=== PATIENT | female | born 1995 | race Two or more races ===

== ENCOUNTER 2021-01-21 10:45 | Emergency (ER) | payer MEDICAID ==
[~2021-01-21] VITALS: Ht 167.6 cm; Wt 181.4 kg
[2021-01-21 11:32] VITALS: BP 131/88
[2021-01-21] MEDS ORDERED: IBUPROFEN 800 MG TAB PO ONE (12:15)
== END 2021-01-21 12:37 | disposition home or self-care (01) ==
LOC: ER 10:53
DX: S83.92XA Sprain of unspecified site of left knee, initial encounter (principal); E66.01 Morbid (severe) obesity due to excess calories; Z68.44 Body mass index [BMI] 60.0-69.9, adult; W18.39XA Other fall on same level, initial encounter; Y93.89 Activity, other specified; Y92.89 Other specified places as the place of occurrence of the external cause; Y99.8 Other external cause status
CPT/HCPCS: 73562

== ENCOUNTER → 2024-07-02 | Outpatient (CLI) | payer MEDICAID ==
[2024-07-02 11:23] LABS: Basophils # (auto) 0.1 10 ^3/uL (0-0.2); Basophils % (auto) 0.9 % (0.0-2.0); Eosinophils # (auto) 0.2 10 ^3/uL (0-0.8); Eosinophils % (auto) 2.7 % (0.0-7.0); Hematocrit 41.4 % (36.0-46.0); Lymphocytes # (auto) 2.3 10 ^3/uL (0.4-5.4); Lymphocytes % (auto) 26.5 % (10.0-50.0); Mean Corpuscular Hemoglobin 27.7 pg (28.0-32.0); Mean Corpuscular Hgb Conc. 33.7 g/dL (32.0-36.0); Mean Corpuscular Volume 82.1 fL (80.0-100.0); Monocytes # (auto) 0.5 10 ^3/uL (0-1.3); Monocytes % (auto) 5.3 % (0.0-12.0); Neutrophils # (auto) 5.7 10 ^3/uL (1.6-8.6); Neutrophils % (auto) 64.6 % (37.0-80.0); Nucleated Red Blood Cells % 0.2 %; Platelet Count (auto) 290 10^3/uL (140-450); Red Blood Cells 5.04 10^6/uL (4.0-5.20); Red Cell Distribution Width 13.9 % (11.8-14.3); White Blood Cell 8.9 10^3/uL (4.4-10.8)
[2024-07-02 11:33] LABS: Urine Bacteria FEW /hpf (None Seen); Urine Blood Negative /uL (Negative); Urine Clarity Clear (Clear); Urine Color Yellow (Yellow); Urine Mucus FEW (None Seen); Urine Protein, UAD TRACE (Negative); Urine Specific Gravity 1.031 (1.001-1.035); Urine Urobilinogen Normal (Negative); Urine WBC 7 /hpf (0 - 5); Urine pH 5.5 (5.0-9.0)
[2024-07-02 12:08] LABS: Alanine Aminotransferase 16 U/L (7-40); Albumin 4.2 g/dL (3.2-4.8); Alkaline Phosphatase 101 U/L (46-116); Anion Gap 5 (5-15); Aspartate Aminotransferase 15 U/L (13-40); BUN/Creatinine Ratio 19.2 (10.0-20.0); Blood Urea Nitrogen 14 mg/dL (9-23); Calcium 9.5 mg/dL (8.7-10.4); Carbon Dioxide 31 mmol/L (20-31); Chloride 105 mmol/L (98-107); Cholesterol 174 mg/dL (< 200); Glucose 89 mg/dL (74-106); HDL Cholesterol 40 mg/dL (40-59); LDL Cholesterol 108 mg/dL (< 100); Potassium 4.3 mmol/L (3.5-5.1); Sodium 141 mmol/L (136-145); Triglycerides 117 mg/dL (< 150)
[2024-07-02 12:09] LABS: Bilirubin, Total 0.4 mg/dL (0.2-1.0); Total Protein 7.4 g/dL (5.7-8.2)
== END | disposition home or self-care (01) ==
LOC: LAB 10:49
PROVIDERS: ATTEND Nurse Practitioner Family
DX: Z00.01 Encounter for general adult medical examination with abnormal findings (principal); R73.9 Hyperglycemia, unspecified; E55.9 Vitamin D deficiency, unspecified; E66.9 Obesity, unspecified; I10 Essential (primary) hypertension
CPT/HCPCS: 36415; 80053; 80061; 81001; 82043; 82306; 83036; 84443; 85025

== ENCOUNTER 2024-08-03 23:51 | Emergency (ER) | payer MEDICAID | END 2024-08-04 00:05 | disposition left against medical advice (07) | LOC: ER 08-04 | DX: T14.8XXA Other injury of unspecified body region, initial encounter (principal); Z53.21 Procedure and treatment not carried out due to patient leaving prior to being seen by health care provider; X58.XXXA Exposure to other specified factors, initial encounter; Y93.89 Activity, other specified; Y92.89 Other specified places as the place of occurrence of the external cause; Y99.8 Other external cause status ==

== ENCOUNTER 2025-03-16 00:14 | Inpatient (IN) | payer MEDICAID ==
[2025-03-16] VITALS (7 sets, daily range): BP systolic 110–126; BP diastolic 59–69; PULSE 55–67; RESP 12–18; TEMP 97.5–97.6; O2SAT 96–97
[~2025-03-16] VITALS: Ht 167.6 cm; Wt 165.0 kg
[2025-03-16 00:51] LABS: Hematocrit 42.8 % (36.0-46.0); Hemoglobin 14.4 g/dL (12.2-16.2); Mean Corpuscular Hemoglobin 27.8 pg (28.0-32.0); Mean Corpuscular Volume 82.6 fL (80.0-100.0); Nucleated Red Blood Cells % 0.0 %
--- NOTE | 2025-03-16 00:55 | ED.PDOC ---
History of Present Illness HPI Comments 29-year-old female status post gastric bypass surgery 6 days ago now complains of pain in the middle of her abdomen where the gastric bypass incisions are. Associated with malaise and some dizziness Chief Complaint: Abdominal Pain Time Seen by MD: 00:18 Primary Care Provider: DE PRITCHARD Allergies: Coded Allergies: NO KNOWN ALLERGIES (Unverified , 01/21/21) Information Source: Patient Mode of Arrival: SELF Severity: Moderate, Severe Timing: Hours, Days Duration: Since onset Past Medical History PAST MEDICAL HISTORY: Denies Surgical History: Denies all surgeries CAR CHASER History: Denies all CAR CHASER Hx Family History Family History: Reviewed,noncontributory to illness Social History Smoker: Non-Smoker Lives In: Home Constitutional: reports: malaise Gastrointestinal: reports: abdominal pain, nausea All Other Systems: Reviewed and Negative Physical Exam General Appearance: Moderate Distress HEENT: Normal ENT Inspection, Pharynx Normal, TMs Normal Neck: Full Range of Motion, Non-Tender, Normal, Normal Inspection Respiratory: Chest Non-Tender, Lungs Clear, No Accessory Muscle Use, No Respiratory Distress, Normal Breath Sounds Cardiovascular: No Edema, No JVD, No Murmur, No Gallop, Normal Peripheral Pulses, Regular Rate/Rhythm Breast Exam: Deferred Gastrointestinal: Tenderness, Other (Obese. Healing surgical incisions noted in the mid abdomen that are clean dry and intact) Genitalia: Deferred Pelvic: Deferred Rectal: Deferred Extremities: No calf tenderness, Normal capillary refill, Normal inspection, Normal range of motion, Non-tender, No pedal edema Musculoskeletal : Apperance: Normal Neurologic: Alert, automobile designer II-XII nml as Tested, No Motor Deficits, Normal Affect, Normal Mood, No Sensory Deficits Cerebellar Function: Normal Reflexes: Normal Skin: Dry, Normal Color, Warm Lymphatic: No Adenopathy Was a procedure done? Was a procedure done?: No Differential Dx Considerations may include: Differential diagnosis includes but is not limited to: gastritis, peptic ulcers, pancreatitis, cholecystitis, bowel obstruction, cholangitis and others X-Ray, Labs, Meds, VS Vital Signs Date Time Temp Pulse Resp B/P (MAP) Pulse Ox O2 Delivery O2 Flow Rate FiO2 03/16/25 04:45 64 18 134/76 03/16/25 04:40 98.1 64 19 137/76 (96) 100 98.1 03/16/25 04:40 64 19 100 Room Air 03/16/25 00:35 97.6 61 16 140/77 (98) 97 97.6 Lab Test 03/16/25 01:00 03/16/25 00:26 Range/Units Urine Color Yellow Yellow Urine Clarity Clear Clear Urine pH 6.0 5.0-9.0 Urine Specific [place] 1.033 1.001-1.035 Urine Protein Trace H Negative Urine Ketones 4+ H Negative Urine Blood Negative Negative /uL Urine Nitrite Negative Negative Urine Bilirubin 1+ H Negative Urine Urobilinogen 3 H Negative mg/dL Urine Leukocyte Esterase 2+ Negative /uL Urine RBC 4 0 - 4 /hpf Urine Microscopic WBC 22 H 0-5 /HPF Urine Squamous Epithelial Cells Few <5 /hpf Urine Bacteria Few H None Seen /hpf Urine Mucus Few None Seen Urine Glucose Normal Normal mg/dL Urine Test Negative Negative White Blood Count 13.5 H 4.4-10.8 10^3/uL Red Blood Count 5.17 4.0-5.20 10^6/uL Hemoglobin 14.4 12.2-16.2 g/dL Hematocrit 42.8 36.0-46.0 % Mean Corpuscular Volume 82.6 80.0-100.0 fL Mean Corpuscular Hemoglobin 27.8 L 28.0-32.0 pg Mean Corpuscular Hemoglobin Concent 33.7 32.0-36.0 g/dL Red Cell Distribution Width 14.0 11.8-14.3 % Platelet Count 318 140-450 10^3/uL Mean Platelet Volume 8.9 6.9-10.8 fL Neutrophils (%) (Auto) 66.9 37.0-80.0 % Lymphocytes (%) (Auto) 24.4 10.0-50.0 % Monocytes (%) (Auto) 6.0 0.0-12.0 % Eosinophils (%) (Auto) 2.1 0.0-7.0 % Basophils (%) (Auto) 0.6 0.0-2.0 % Neutrophils # (Auto) 9.0 H 1.6-8.6 10 ^3/uL Lymphocytes # (Auto) 3.3 0.4-5.4 10 ^3/uL Monocytes # (Auto) 0.8 0-1.3 10 ^3/uL Eosinophils # (Auto) 0.3 0-0.8 10 ^3/uL Basophils # (Auto) 0.1 0-0.2 10 ^3/uL Nucleated Red Blood Cells 0.0 % Sodium Level 138 136-145 mmol/L Potassium Level 3.3 L 3.5-5.1 mmol/L Chloride Level 102 98-107 mmol/L Carbon Dioxide Level 22 20-31 mmol/L Anion Gap 14 5-15 Blood Urea Nitrogen 12 9-23 mg/dL Creatinine 0.71 0.550-1.02 mg/dL Glomerular Filtration Rate Calc 119 >90 mL/min BUN/Creatinine Ratio 16.9 10.0-20.0 Serum Glucose 77 74-106 mg/dL Calcium Level 9.3 8.7-10.4 mg/dL Total Bilirubin 0.5 0.2-1.0 mg/dL Aspartate Amino Transferase (AST) 48 H 13-40 U/L Alanine Aminotransferase (ALT) 59 H 7-40 U/L Alkaline Phosphatase 81 46-116 U/L Total Protein 7.4 5.7-8.2 g/dL Albumin 4.5 3.2-4.8 g/dL Lipase 32 12-53 U/L Beta HCG, Quantitative 0.5 L 1.5-4.2 mIU/mL Current Medications Medications (Trade) Dose Ordered Sig/Cyndi Route Start Time Stop Time Status Last Admin Sodium Chloride 1,000 ml @ 1,000 mls/hr Q1H ONCE IVB 03/16/25 01:00 03/16/25 01:59 DC 03/16/25 04:34 Hydromorphone HCl (Dilaudid Injection) 1 mg ONCE ONCE IV 03/16/25 04:45 03/16/25 04:46 DC 03/16/25 04:45 Ondansetron HCl (Zofran) 4 mg ONCE ONCE IV 03/16/25 04:45 03/16/25 04:46 DC 03/16/25 04:44 Piperacillin Sod/ Tazobactam Sod 100 ml @ 100 mls/hr ONCE ONCE IV 03/16/25 04:45 03/16/25 05:44 03/16/25 04:46 Time of 1ST Reevaluation: 04:00 Reevaluation 1ST: Unchanged Patient Education/Counseling: Diagnosis, Treatment Family Education/Counseling: No Family Present SEPSIS Sepsis Screen Date sepsis recognized/suspect: Mar 16, 2025 Time Sepsis recognized/suspect: 0026 Recent Procedure: Yes On Antibiotic Therapy: No Respiratory Rate >20: No Heart Rate >90: No Temp<36 C (96.8 F) or >38.3 C: No SBP <90 or MAP <65 mmHG: No New Acute Mental Status Change: No Is the patient on CPAP, BIPAP,: No Physician Orders Ct Ab Pel With Iv Con Only (03/16/25 00:48) Gallbladder (03/16/25 04:39) Piperacillin-Tazob 3.375gm (Zosyn 3.375g (03/16/25 04:45) Vital Signs Date Time Temp Pulse Resp B/P (MAP) Pulse Ox O2 Delivery O2 Flow Rate FiO2 03/16/25 04:45 64 18 134/76 03/16/25 04:40 98.1 64 19 137/76 (96) 100 98.1 03/16/25 04:40 64 19 100 Room Air 03/16/25 00:35 97.6 61 16 140/77 (98) 97 97.6 Laboratory Tests Test 03/16/25 00:26 White Blood Count 13.5 10^3/uL (4.4-10.8) H Medications Medications Dose Ordered Sig/Cyndi Route Start Time Stop Time Status Last Admin Dose Admin Hydromorphone HCl 1 mg ONCE ONCE IV 03/16/25 04:45 03/16/25 04:46 DC 03/16/25 04:45 Ondansetron HCl 4 mg ONCE ONCE IV 03/16/25 04:45 03/16/25 04:46 DC 03/16/25 04:44 Piperacillin Sod/ Tazobactam Sod 100 ml @ 100 mls/hr ONCE ONCE IV 03/16/25 04:45 03/16/25 05:44 03/16/25 04:46 Sodium Chloride 1,000 ml @ 1,000 mls/hr Q1H ONCE IVB 03/16/25 01:00 03/16/25 01:59 DC 03/16/25 04:34 Departure 1 Departure Time of Disposition: 04:53 Impression: Primary Impression: Cholecystitis Additional Impression: Urinary tract infection Disposition: 09 ADMITTED INPATIENT Condition: Guarded Discharged With: Self Comments Upper Abdominal Pain Post Gastric Bypass Chief Complaint: Upper abdominal pain for 4 hours History of Present Illness: Patient is a 29-year-old female who presents to the ED with complaints of upper abdominal pain for the last 4 hours after eating. The patient is 6 days post gastric bypass surgery. She reports associated symptoms of malaise, dizziness, and nausea. The pain is primarily located in the epigastric region. She denies fever, vomiting, diarrhea, or changes in bowel habits. The patient has been f ollowing post-surgical dietary recommendations until this episode. Review of Systems: Constitutional: Positive for malaise and dizziness. Gastrointestinal: Positive for epigastric pain and nausea. Negative for vomiting, diarrhea, or constipation. Genitourinary: No dysuria, frequency, or urgency reported despite laboratory evidence of UTI. All other systems reviewed and negative. Medications: Post-surgical medications (not specified in early childhood education specialist) IV fluids (administered in ED) IV antibiotics (administered in ED) Not documented in early childhood education specialist Physical Exam: General: Not documented in early childhood education specialist Abdomen: Tenderness in the epigastric area. No rebound or guarding documented. Lab Results: CBC: - WBC: 13.5 (elevated) - Remainder of CBC unremarkable Chemistry: - Potassium: 3.3 (low) - AST: 48 (elevated) - ALT: 59 (elevated) - Remainder of LFTs unremarkable Urinalysis: - Leukocytes: 2+ - WBCs: 22 Imaging and Other Relevant Results: CT Abdomen/Pelvis: - Moderate gallbladder wall thickening - Pericholecystic edema - Splenomegaly - Trace physiological free fluid Medical Decision Making: Summary Statement: 29-year-old female, 6 days post gastric bypass surgery, presenting with acute upper abdominal pain, elevated inflammatory markers, and CT findings consistent with acute cholecystitis. Concurrent UTI identified on urinalysis. Problem List: 1. Acute cholecystitis 2. Urinary tract infection 3. Recent gastric bypass surgery 4. Hypokalemia Differential Diagnosis: Acute cholecystitis, anastomotic leak, post-surgical infection, pancreatitis, gastritis, small bowel obstruction, internal hernia, urinary tract infection. ED Course: Patient received IV fluids and IV antibiotics. Pain persisted despite interventions. Decision made to admit for management of acute cholecystitis and UTI. Assessment and Plan: 1. Acute Cholecystitis: - Diagnosis supported by clinical presentation, elevated WBC, and CT findings of gallbladder wall thickening with pericholecystic edema - Continue IV antibiotics with coverage for biliary pathogens - Surgical consultation for possible cholecystectomy - NPO status - Pain management with IV analgesics 2. Urinary Tract Infection: - Diagnosis based on urinalysis showing 2+ leukocytes and 22 WBCs - Continue IV antibiotics with appropriate urinary tract coverage - Encourage fluid intake as tolerated - Urine culture results pending 3. Post Gastric Bypass Status: - Surgical consultation to evaluate for any potential post-surgical complications - Monitor for signs of anastomotic leak or other surgical complications 4. Hypokalemia (K+ 3.3): - IV potassium supplementation - Serial electrolyte monitoring 5. Disposition: Admit to inpatient service for continued management and monitoring Additional Notes: Patient admitted for acute cholecystitis and UTI following recent gastric bypass surgery Billing Information: ICD-10: K81.0 - Acute cholecystitis ICD-10: N39.0 - Urinary tract infection, site not specified ICD-10: Z98.84 - Bariatric surgery status Critical Care Note Critical Care Time?: No Stability Stability form required: No Heart Score Heart Score: Heart Score Response (Comments) Value History N/A 0 EKG N/A 0 Age N/A 0 Risk Factors N/A 0 Troponin N/A 0 Total 0 KANDIS GUERRERO MD Mar 16, 2025 00:54
[2025-03-16 01:05] LABS: Albumin 4.5 g/dL (3.2-4.8); Alkaline Phosphatase 81 U/L (46-116); Anion Gap 14 (5-15); BUN/Creatinine Ratio 16.9 (10.0-20.0); Bilirubin, Total 0.5 mg/dL (0.2-1.0); Blood Urea Nitrogen 12 mg/dL (9-23); Calcium 9.3 mg/dL (8.7-10.4); Carbon Dioxide 22 mmol/L (20-31); Chloride 102 mmol/L (98-107); Glucose 77 mg/dL (74-106); Lipase 32 U/L (12-53); Sodium 138 mmol/L (136-145); Total Protein 7.4 g/dL (5.7-8.2)
[2025-03-16 01:09] LABS: Alanine Aminotransferase 59 U/L (7-40); Potassium 3.3 mmol/L (3.5-5.1)
[2025-03-16] MEDS: IOHEXOL 300 MG/ML 100ML BOTTLE IJ ONE (01:19)
[2025-03-16 01:55] LABS: Urine Protein, UAD TRACE (Negative)
--- NOTE | 2025-03-16 04:14 | DVH ---
Exam: CT CT AB PEL WITH IV CON ONLY History: abd pain s/p gastric bypass surg 6 days ago COMPARISON: None Technique: Multidetector spiral CT of the abdomen and pelvis was performed from lung bases to pubic s ymphysis. Intravenous contrast was administered during this examination. Portal venous imaging was o btained. Axial, coronal and sagittal multiplanar reformats were performed by the technologist on a [employer] workstation. Radiation Dose : 1. Abdomen/Pelvis: CTDIvol 27.88 mGy, DLP 1393.41 mGy*cm. CONTRAST: Type of contrast: Omnipaque 300 Contrast injected: 100 ml Findings: Lung Bases: No acute or significant lung base finding. Normal heart size. No pleural or pericardial effusion. Liver: The liver is normal in size. No focal lesions. Normal hepatic vascular enhancement. Gallbladder and Biliary Tree: Moderate gallbladder wall thickening and pericholecystic edema. Spleen: Enlarged, measuring 14.8 cm in craniocaudal dimension. Pancreas: The pancreas is normal in appearance without focal lesions or abnormal enhancement. Adrenal Glands: Unremarkable Kidneys: No nephrolithiasis or hydronephrosis. Bladder: Unremarkable Bowel: The stomach is grossly normal in appearance with postsurgical change. Small bowel and colon ar e normal in caliber and distribution. The appendix is normal. Ascites: Trace likely physiologic pelvic cul-de-sac free fluid. Lymphadenopathy: No mesenteric, retroperitoneal or periportal lymphadenopathy. Abdominal Wall and Mesentery: Unremarkable. Vasculature: The visualized abdominal aorta is normal in size and caliber. Abdominal and pelvic vess els demonstrate normal enhancement. Pelvic Organs: Structure near water attenuation consistent with an ovarian cyst. Musculoskeletal: No aggressive focal bony lesions, acute fractures or dislocation. IMPRESSION: 1. Moderate gallbladder wall thickening and pericholecystic edema. 2. Splenomegaly. 3. Trace likely physiologic pelvic cul-de-sac free fluid. Radiation optimization: All CT scans at this facility use at least one of these dose optimization hetal hniques: automated exposure control mA and/or kV adjustment per patient size (includes targeted exam s where dose is matched to clinical indication) or iterative reconstruction.
[2025-03-16] MEDS: SODIUM CHLORIDE 0.9% 1,000 ML IVB ONE (04:34)
[2025-03-16] MEDS: ONDANSETRON HCL 4 MG/2 ML VIAL IV ONE (04:44)
[2025-03-16] MEDS: HYDROmorphone HCL 2 MG/ML VL/or syr IV ONE (04:45)
[2025-03-16] MEDS: PIPERACILLIN-TAZOB 3.375GM 100 ML IV ONE (04:46)
[2025-03-16] MEDS: METOCLOPRAMIDE HCL 5MG/ml INJ 2ml VIAL IV ONE (06:07)
[2025-03-16] MEDS: KETOROLAC TROMETH 30 MG/ML 1ML VIAL IV ONE (06:07)
[2025-03-16] MEDS: METOCLOPRAMIDE HCL 5MG/ml INJ 2ml VIAL ONE (06:07)
--- NOTE | 2025-03-16 06:58 | DVH ---
INDICATION: RUQ pain TECHNIQUE: Multiple real-time sonographic images were obtained of the right upper quadrant. COMPARISON: None FINDINGS: The liver demonstrates normal homogeneous echotexture without focal mass lesions. The liver measures 14.9 cm. Normal hepatopetal portal flow identified. No evidence of pleural effusion or abd ominal ascites. There is no intrahepatic or extrahepatic ductal dilatation. The common duct measures 0.5 cm. The gallbladder is without evidence of stone or sludge. The gallbladder wall is thickened, measuring 1.5 cm. Pericholecystic fluid. Negative sonographic quintana's sign. The right kidney measures 9.1 cm. The right kidney is normal in contour, size, and shape. The echogen icity is normal. There is no hydronephrosis. The pancreas is not well visualized due to overlying bowel gas. IMPRESSION: 1. Gallbladder wall thickening with pericholecystic fluid. These findings may be consistent with acut e cholecystitis in the appropriate clinical setting.
[2025-03-16] MEDS ORDERED: HYDROcodone-ACET 5/325MG TAB PO PRN (07:45)
[2025-03-16] MEDS ORDERED: DOCUSATE SOD 100 MG CAP PO PRN (07:45)
[2025-03-16] MEDS ORDERED: ACETAMINOPHEN 325 MG TAB PO PRN (07:45)
[2025-03-16] MEDS ORDERED: METOCLOPRAMIDE HCL 5MG/ml INJ 2ml VIAL IV PRN (07:45)
[2025-03-16] MEDS ORDERED: ONDANSETRON HCL 4 MG/2 ML VIAL IV PRN (07:45)
[2025-03-16] MEDS ORDERED: MORPHINE SULFATE INJ 2 MG/ml SYRG IV PRN (07:45)
--- NOTE | 2025-03-16 07:47 | DVHHP2 ---
History of Present Illness Reason for Visit: Abdominal pain History of Present Illness Eda Liang is a 29-year-old female with past medical history of morbid obesity, asthma, and ADHD, who came to the hospital for abdominal pain. Patient had gastric bypass surgery on 03/10/2025. She states last night she cheated on her approved diet and had caned chicken. Her pain began shortly after eating, and was lasting more then 4 hours with associated nausea. She states it felt like the food was not digesting and just sitting in her stomach. She was not sure if she just over ate, or if she had tore her stitches or damaged the surgery, prompting her to come to the hospital to be evaluated. Pulmonary: Asthma Psych: Other (ADHD) Past Surgical History: Other (Gastric bypass 03/10/2025) Smoke: No ALCOHOL: rare Drugs: None Lives: with Family Domestic Violence: Neg Review of Systems Constitutional: No: Fever, Chills, Sweats, Weakness, Malaise, Other Eyes: No: Pain, Vision change, Conjunctivae inflammation, Eyelid inflammation, Other, Redness ENT: No: Ear pain, Ear discharge, Nose pain, Nose discharge, Nose congestion, Mouth pain, Mouth swelling, Throat pain, Throat swelling, Other Respiratory: No: Cough, Dry, Shortness of breath, SOB with excertion, Wheezing, Hemoptysis, Pleuritic Pain, Sputum, Wheezing, Other Cardiovascular: No: Chest Pain, Palpitations, Orthopnea, Paroxysmal Noc. Dyspnea, Edema, Lt Headedness, Other Gastrointestinal: Nausea, Abdominal Pain; No: Vomiting, Diarrhea, Constipation, Melena, Hematochezia, Other Genitourinary: No Dysuria, No Frequency, No Incontinence, No Hematuria, No Retention, No Other Musculoskeletal: No: other, neck pain, shoulder pain, arm pain, back pain, hand pain, leg pain, foot pain Skin: No: Rash, Lesions, Jaundice, Bruising, Other Neurological: No: Weakness, Numbness, Incoordination, Change in speech, Confusion, Seizures, Other Allergies: Coded Allergies: NO KNOWN ALLERGIES (Unverified , 01/21/21) Medications Current Medications Medications Dose Ordered Sig/Cyndi Route Start Time Stop Time Status Last Admin Dose Admin Sodium Chloride 1,000 ml @ 100 mls/hr Q10H IV 03/16/25 07:45 UNV Acetaminophen/ Hydrocodone Bitart 1 tab Q4HP PRN PO 03/16/25 07:45 UNV Ondansetron HCl 4 mg Q4HP PRN IV 03/16/25 07:45 UNV Docusate Sodium 100 mg BIDPRN PRN PO 03/16/25 07:45 UNV Acetaminophen 650 mg Q6HP PRN PO 03/16/25 07:45 UNV Morphine Sulfate 2 mg Q4HPRN PRN IV 03/16/25 07:45 UNV Metoclopramide HCl 10 mg Q8HPRN PRN IV 03/16/25 07:45 UNV Metronidazole 100 ml @ 100 mls/hr Q8HR IV 03/16/25 14:00 UNV Exam Vital Signs Vital Signs Date Time Temp Pulse Resp B/P (MAP) Pulse Ox O2 Delivery O2 Flow Rate FiO2 03/16/25 06:30 84 16 138/68 (91) 100 03/16/25 04:56 Room Air* 0 21 03/16/25 04:40 98.1 98.1 General Appearance: Alert, Oriented X3, Cooperative, mild distress HEENT: Atraumatic, PERRLA Respiratory: Clear to auscultation, Normal air movement Cardiovascular: Regular rate, Normal S1, Normal S2, No murmurs Abdominal: Normal bowel sounds, Soft, Other (Tender to the touch, multiple healing incision sites) Extremities: No clubbing, No cyanosis, No edema, Normal pulses, No tenderness/swelling Skin: No rashes, No breakdown, No significant lesion Neuro: Normal gait, Normal speech, Strength at 5/5 X4 ext Psych/Mental Status: Mental status NL, Mood NL Labs/Xrays Labs Test 03/16/25 01:00 03/16/25 00:26 Range/Units Urine Color Yellow Yellow Urine Clarity Clear Clear Urine pH 6.0 5.0-9.0 Urine Specific [place] 1.033 1.001-1.035 Urine Protein Trace H Negative Urine Ketones 4+ H Negative Urine Blood Negative Negative /uL Urine Nitrite Negative Negative Urine Bilirubin 1+ H Negative Urine Urobilinogen 3 H Negative mg/dL Urine Leukocyte Esterase 2+ Negative /uL Urine RBC 4 0 - 4 /hpf Urine Microscopic WBC 22 H 0-5 /HPF Urine Squamous Epithelial Cells Few <5 /hpf Urine Bacteria Few H None Seen /hpf Urine Mucus Few None Seen Urine Glucose Normal Normal mg/dL Urine Test Negative Negative White Blood Count 13.5 H 4.4-10.8 10^3/uL Red Blood Count 5.17 4.0-5.20 10^6/uL Hemoglobin 14.4 12.2-16.2 g/dL Hematocrit 42.8 36.0-46.0 % Mean Corpuscular Volume 82.6 80.0-100.0 fL Mean Corpuscular Hemoglobin 27.8 L 28.0-32.0 pg Mean Corpuscular Hemoglobin Concent 33.7 32.0-36.0 g/dL Red Cell Distribution Width 14.0 11.8-14.3 % Platelet Count 318 140-450 10^3/uL Mean Platelet Volume 8.9 6.9-10.8 fL Neutrophils (%) (Auto) 66.9 37.0-80.0 % Lymphocytes (%) (Auto) 24.4 10.0-50.0 % Monocytes (%) (Auto) 6.0 0.0-12.0 % Eosinophils (%) (Auto) 2.1 0.0-7.0 % Basophils (%) (Auto) 0.6 0.0-2.0 % Neutrophils # (Auto) 9.0 H 1.6-8.6 10 ^3/uL Lymphocytes # (Auto) 3.3 0.4-5.4 10 ^3/uL Monocytes # (Auto) 0.8 0-1.3 10 ^3/uL Eosinophils # (Auto) 0.3 0-0.8 10 ^3/uL Basophils # (Auto) 0.1 0-0.2 10 ^3/uL Nucleated Red Blood Cells 0.0 % Sodium Level 138 136-145 mmol/L Potassium Level 3.3 L 3.5-5.1 mmol/L Chloride Level 102 98-107 mmol/L Carbon Dioxide Level 22 20-31 mmol/L Anion Gap 14 5-15 Blood Urea Nitrogen 12 9-23 mg/dL Creatinine 0.71 0.550-1.02 mg/dL Glomerular Filtration Rate Calc 119 >90 mL/min BUN/Creatinine Ratio 16.9 10.0-20.0 Serum Glucose 77 74-106 mg/dL Calcium Level 9.3 8.7-10.4 mg/dL Total Bilirubin 0.5 0.2-1.0 mg/dL Aspartate Amino Transferase (AST) 48 H 13-40 U/L Alanine Aminotransferase (ALT) 59 H 7-40 U/L Alkaline Phosphatase 81 46-116 U/L Total Protein 7.4 5.7-8.2 g/dL Albumin 4.5 3.2-4.8 g/dL Lipase 32 12-53 U/L Beta HCG, Quantitative 0.5 L 1.5-4.2 mIU/mL Exam: CT CT AB PEL WITH IV CON ONLY Findings: Lung Bases: No acute or significant lung base finding. Normal heart size. No pleural or pericardial effusion. Liver: The liver is normal in size. No focal lesions. Normal hepatic vascular enhancement. Gallbladder and Biliary Tree: Moderate gallbladder wall thickening and pericholecystic edema. Spleen: Enlarged, measuring 14.8 cm in craniocaudal dimension. Pancreas: The pancreas is normal in appearance without focal lesions or abnormal enhancement. Adrenal Glands: Unremarkable Kidneys: No nephrolithiasis or hydronephrosis. Bladder: Unremarkable Bowel: The stomach is grossly normal in appearance with postsurgical change. Small bowel and colon are normal in caliber and distribution. The appendix is normal. Ascites: Trace likely physiologic pelvic cul-de-sac free fluid. Lymphadenopathy: No mesenteric, retroperitoneal or periportal lymphadenopathy. Abdominal Wall and Mesentery: Unremarkable. Vasculature: The visualized abdominal aorta is normal in size and caliber. Abdominal and pelvic vessels demonstrate normal enhancement. Pelvic Organs: Structure near water attenuation consistent with an ovarian cyst. Musculoskeletal: No aggressive focal bony lesions, acute fractures or dislocation. IMPRESSION: 1. Moderate gallbladder wall thickening and pericholecystic edema. 2. Splenomegaly. 3. Trace likely physiologic pelvic cul-de-sac free fluid. EXAM: GALL BLADDER ULTRASOUND: FINDINGS: The liver demonstrates normal homogeneous echotexture without focal mass lesions. The liver measures 14.9 cm. Normal hepatopetal portal flow iden tified. No evidence of pleural effusion or abdominal ascites. There is no intrahepatic or extrahepatic ductal dilatation. The common duct measures 0.5 cm. The gallbladder is without evidence of stone or sludge. The gallbladder wall is thickened, measuring 1.5 cm. Pericholecystic fluid. Negative sonographic quintana's sign. The right kidney measures 9.1 cm. The right kidney is normal in contour, size, and shape. The echogenicity is normal. There is no hydronephrosis. The pancreas is not well visualized due to overlying bowel gas. IMPRESSION: 1. Gallbladder wall thickening with pericholecystic fluid. These findings may be consistent with acute cholecystitis in the appropriate clinical setting. SEPSIS Sepsis Screen Date sepsis recognized/suspect: Mar 16, 2025 Time Sepsis recognized/suspect: 439 Recent Procedure: Yes On Antibiotic Therapy: No Respiratory Rate >20: No Heart Rate >90: No Temp<36 C (96.8 F) or >38.3 C: No SBP <90 or MAP <65 mmHG: No New Acute Mental Status Change: No Is the patient on CPAP, BIPAP,: No Physician Orders Ct Ab Pel With Iv Con Only (03/16/25 00:48) Gallbladder (03/16/25 04:39) Admit (03/16/25 07:34) Code Status (03/16/25 07:34) Sodium Chloride 0.9% (03/16/25 07:45) Hydrocodone-Acet 5/325mg Tab ([place] 5/32 (03/16/25 07:45) Ondansetron Hcl (Zofran) (03/16/25 07:45) Docusate Sodium Capsule (Colace Capsule) (03/16/25 07:45) Complete Blood Count (03/17/25 04:00) Comprehensive Metabolic Panel (03/17/25 04:00) Npo (Nothing By Mouth) Diet (03/16/25 Breakfast) Condition: Serious (03/16/25 07:34) Acetaminophen Tablet (Tylenol Tablet) (03/16/25 07:45) Morphine Sulfate Injection (03/16/25 07:45) * Surgical Consult (03/16/25 ) Metoclopramide Injection (Reglan Injecti (03/16/25 07:45) Metronidazole 500mg/100ml (Flagyl 500mg/ (03/16/25 14:00) PTPTT (03/16/25 07:34) Chest Xray 1 View (03/16/25 07:34) Vital Signs Date Time Temp Pulse Resp B/P (MAP) Pulse Ox O2 Delivery O2 Flow Rate FiO2 03/16/25 06:30 84 16 138/68 (91) 100 03/16/25 05:26 55 17 134/65 03/16/25 04:56 64 18 Room Air* 0 21 03/16/25 04:45 64 18 134/76 03/16/25 04:40 98.1 64 19 137/76 (96) 100 98.1 03/16/25 04:40 64 19 100 Room Air 03/16/25 00:35 97.6 61 16 140/77 (98) 97 97.6 Laboratory Tests Test 03/16/25 00:26 White Blood Count 13.5 10^3/uL (4.4-10.8) H Medications Medications Dose Ordered Sig/Cyndi Route Start Time Stop Time Status Last Admin Dose Admin Hydromorphone HCl 1 mg ONCE ONCE IV 03/16/25 04:45 03/16/25 04:46 DC 03/16/25 04:45 1 MG Ketorolac Tromethamine 15 mg ONCE ONCE IV 03/16/25 05:45 03/16/25 05:46 DC 03/16/25 06:07 15 MG Metoclopramide HCl 10 mg ONCE ONCE IV 03/16/25 05:45 03/16/25 05:46 DC 03/16/25 06:07 10 MG Ondansetron HCl 4 mg ONCE ONCE IV 03/16/25 04:45 03/16/25 04:46 DC 03/16/25 04:44 4 MG Piperacillin Sod/ Tazobactam Sod 100 ml @ 100 mls/hr ONCE ONCE IV 03/16/25 04:45 03/16/25 05:44 DC 03/16/25 04:46 100 MLS/HR Sodium Chloride 1,000 ml @ 1,000 mls/hr Q1H ONCE IVB 03/16/25 01:00 03/16/25 01:59 DC 03/16/25 04:34 1,000 MLS/HR Assessment/Plan Assessment/Plan Assessment: Acute cholecystitis, UTI, Hypokalemia, Morbid obesity, Plan: Admit to Med-Surg, Surgical consult, NPO, IV hydration, PT/PTT, Chest X-ray, Manage/Monitor electrolytes closely, IV Protonix daily, Home medications reconciled, Plan discussed with: Patient My Orders Orders - SAQIB GUILLEN [employer] Procedure Category Date Status Time Admit ADMIT 03/16/25 Transmitted 07:34 Code Status CODE 03/16/25 Transmitted 07:34 Sodium Chloride 0.9% PHA 03/16/25 Logged 07:45 Hydrocodone-Acet PHA 03/16/25 Logged 5/325mg Tab ([place] 07:45 Ondansetron Hcl PHA 03/16/25 Logged (Zofran) 07:45 Docusate Sodium PHA 03/16/25 Logged Capsule (Colace 07:45 Complete Blood Count LAB 03/17/25 Verified 04:00 Comprehensive LAB 03/17/25 Verified Metabolic Panel 04:00 Npo (Nothing By DIET 03/16/25 Transmitted Mouth) Diet Breakfast Condition: Serious [place] 03/16/25 In Process 07:34 Acetaminophen Tablet PHA 03/16/25 Logged (Tylenol Tablet) 07:45 Morphine Sulfate PHA 03/16/25 Logged Injection 07:45 * Surgical Consult CONS 03/16/25 Transmitted Metoclopramide PHA 03/16/25 Logged Injection (Reglan 07:45 Metronidazole PHA 03/16/25 Logged 500mg/100ml (Flagyl 14:00 PTPTT LAB 03/16/25 Logged 07:34 Chest Xray 1 View XY 03/16/25 Logged 07:34 Date of Service: Mar 16, 2025 Billing Provider: SAQIB GUILLEN Common Visit Codes: [id number] INP/OBS CARE (MOD) SAQIB GUILLEN Mar 16, 2025 07:47
--- NOTE | 2025-03-16 08:04 | DVH ---
CHEST RADIOGRAPH Indication: Pain Technique: Single frontal view of the chest was obtained COMPARISON: None FINDINGS: Lines and Tubes: None Lungs: Clear Pleura: No effusion. No pneumothorax. Cardiomediastinal contours: Unremarkable Bones: Unremarkable IMPRESSION: No acute disease.
[2025-03-16] MEDS ORDERED: OMEP-448 PO (08:07)
[2025-03-16] MEDS ORDERED: METH27TA PO (08:07)
[2025-03-16 08:55] LABS: INR 1.19 (0.9-1.15); Partial Thromboplastin Time 28.1 SEC (24.5-34.5); Prothrombin Time 12.4 sec (9.3-11.8)
[2025-03-16] MEDS: SODIUM CHLORIDE 0.9% 1,000 ML IV SCH (09:21)
[2025-03-16] MEDS: cefTRIAXone 1GM/50ML D5W 50 ML IV SCH (09:21)
[2025-03-16] MEDS: METHYLPHENIDATE PO SCH (09:52)
[2025-03-16] MEDS: PANTOPRAZOLE 40 MG/10 ML VIAL INJ IV SCH (10:25)
[2025-03-16] MEDS: POTASSIUM CHLORIDE 20 MEQ, LIDOCAINE 1% (LOCAL ANESTH.) 2 ML in SODIUM CHL 0.9% 100 ML IV ONE (10:26)
--- NOTE | 2025-03-16 11:31 | DVHINCON2 ---
Date of service: Mar 16, 2025 History of Present Illness 21-year-old morbidly obese female status post laparoscopic gastric Alon-en-Y bypass at a different facility six days ago who cheating on her diet and ate c hicken yesterday. Immediately afterwards she began experiencing abdominal pain without nausea or vomiting. Past Medical History Morbid obesity Past Surgical History Recent surgery as mentioned Family History: Deafness G8 MOTHER G8 FATHER FHx: breast cancer G8 MOTHER Family History Noncontributory Social History No alcohol, tobacco, IV drug use Allergies: Coded Allergies: NO KNOWN ALLERGIES (Unverified , 01/21/21) Home Meds Reported Medications Omeprazole (Omeprazole Dr) 40 Mg Cap, 40 MG PO DAILY, CAP 03/16/25 Methylphenidate HCl (Methylphenidate Hydrochlo) 27 Mg Tab, 1 TAB PO DAILY 03/16/25 Current Medications Current Medications Medications (Trade) Dose Ordered Sig/Cyndi Route PRN Reason Start Time Stop Time Status Last Admin Sodium Chloride 1,000 ml @ 100 mls/hr Q10H IV 03/16/25 07:45 03/16/25 09:21 Acetaminophen/ Hydrocodone Bitart ([place] 5/325MG Tab) 1 tab Q4HP PRN PO MODERATE PAIN (4-6 PAIN SCALE) 03/16/25 07:45 Ondansetron HCl (Zofran) 4 mg Q4HP PRN IV NAUSEA / VOMITING 03/16/25 07:45 Docusate Sodium (Colace Capsule) 100 mg BIDPRN PRN PO FOR CONSTIPATION 03/16/25 07:45 Acetaminophen (Tylenol Tablet) 650 mg Q6HP PRN PO PAIN SCALE 1-3 OR TEMP>100.4 03/16/25 07:45 Morphine Sulfate 2 mg Q4HPRN PRN IV SEVERE PAIN (7-10 PAIN SCALE) 03/16/25 07:45 Metoclopramide HCl (Reglan Injection) 10 mg Q8HPRN PRN IV NAUSEA / VOMITING 03/16/25 07:45 Metronidazole 100 ml @ 100 mls/hr Q8HR IV 03/16/25 14:00 Ceftriaxone Sodium 50 ml @ 100 mls/hr DAILY@09 IV 03/16/25 09:00 03/16/25 09:21 Pantoprazole Sodium (Protonix) 40 mg DAILY IV 03/16/25 10:00 03/16/25 10:25 Patient Own Medication 1 tab DAILY PO 03/16/25 10:00 Vital Signs Vital Signs Date Time Temp Pulse Resp B/P (MAP) Pulse Ox O2 Delivery O2 Flow Rate FiO2 03/16/25 09:18 97.6 56 18 126/69 (88) 96 97.6 03/16/25 09:10 Room Air* 0 21 Physical Exam GEN: Morbidly obese female in no acute distress. Alert. HEENT: Normocephalic atraumatic. Moist mucous membranes. Anicteric sclerae. CV: RRR Respiratory: CTAB ABD: Obese abdomen with well-healing incisions. Minimal epigastric tenderness to palpation without guarding or rebound. CT of the abdomen and pelvis: Moderate gallbladder wall thickening and pericholecystic edema. Abdominal ultrasound: Gallbladder wall thickening with pericholecystic edema. No gallstones. Common bile duct is 0.5 cm. Labs/Diagnostic Data Labs Test 03/16/25 08:14 03/16/25 01:00 03/16/25 00:26 Range/Units Prothrombin Time 12.4 H 9.3-11.8 sec Prothrombin Time INR 1.19 H 0.9-1.15 Activated Partial Thromboplast Time 28.1 24.5-34.5 SEC Urine Color Yellow Yellow Urine Clarity Clear Clear Urine pH 6.0 5.0-9.0 Urine Specific [place] 1.033 1.001-1.035 Urine Protein Trace H Negative Urine Ketones 4+ H Negative Urine Blood Negative Negative /uL Urine Nitrite Negative Negative Urine Bilirubin 1+ H Negative Urine Urobilinogen 3 H Negative mg/dL Urine Leukocyte Esterase 2+ Negative /uL Urine RBC 4 0 - 4 /hpf Urine Microscopic WBC 22 H 0-5 /HPF Urine Squamous Epithelial Cells Few <5 /hpf Urine Bacteria Few H None Seen /hpf Urine Mucus Few None Seen Urine Glucose Normal Normal mg/dL Urine Test Negative Negative White Blood Count 13.5 H 4.4-10.8 10^3/uL Red Blood Count 5.17 4.0-5.20 10^6/uL Hemoglobin 14.4 12.2-16.2 g/dL Hematocrit 42.8 36.0-46.0 % Mean Corpuscular Volume 82.6 80.0-100.0 fL Mean Corpuscular Hemoglobin 27.8 L 28.0-32.0 pg Mean Corpuscular Hemoglobin Concent 33.7 32.0-36.0 g/dL Red Cell Distribution Width 14.0 11.8-14.3 % Platelet Count 318 140-450 10^3/uL Mean Platelet Volume 8.9 6.9-10.8 fL Neutrophils (%) (Auto) 66.9 37.0-80.0 % Lymphocytes (%) (Auto) 24.4 10.0-50.0 % Monocytes (%) (Auto) 6.0 0.0-12.0 % Eosinophils (%) (Auto) 2.1 0.0-7.0 % Basophils (%) (Auto) 0.6 0.0-2.0 % Neutrophils # (Auto) 9.0 H 1.6-8.6 10 ^3/uL Lymphocytes # (Auto) 3.3 0.4-5.4 10 ^3/uL Monocytes # (Auto) 0.8 0-1.3 10 ^3/uL Eosinophils # (Auto) 0.3 0-0.8 10 ^3/uL Basophils # (Auto) 0.1 0-0.2 10 ^3/uL Nucleated Red Blood Cells 0.0 % Sodium Level 138 136-145 mmol/L Potassium Level 3.3 L 3.5-5.1 mmol/L Chloride Level 102 98-107 mmol/L Carbon Dioxide Level 22 20-31 mmol/L Anion Gap 14 5-15 Blood Urea Nitrogen 12 9-23 mg/dL Creatinine 0.71 0.550-1.02 mg/dL Glomerular Filtration Rate Calc 119 >90 mL/min BUN/Creatinine Ratio 16.9 10.0-20.0 Serum Glucose 77 74-106 mg/dL Calcium Level 9.3 8.7-10.4 mg/dL Total Bilirubin 0.5 0.2-1.0 mg/dL Aspartate Amino Transferase (AST) 48 H 13-40 U/L Alanine Aminotransferase (ALT) 59 H 7-40 U/L Alkaline Phosphatase 81 46-116 U/L Total Protein 7.4 5.7-8.2 g/dL Albumin 4.5 3.2-4.8 g/dL Lipase 32 12-53 U/L Beta HCG, Quantitative 0.5 L 1.5-4.2 mIU/mL Assessment 1. Status post laparoscopic gastric bypass surgery postop day #6 with acalculous cholecystitis but clinically stable. Plan/Recommendation 1. We will discuss with Radiology for possible percutaneous cholecystostomy. If not I recommend continuing with broad-spectrum IV antibiotic treatment. No surgery at this time due to her recent surgery. I do recommend possible elective cholecystectomy in the future. Plan discussed with: Patient EILEEN CHRISTIE MD Mar 16, 2025 11:31
--- NOTE | 2025-03-16 13:05 | DVHPN2 ---
Progress Note Date Seen: Mar 16, 2025 Medical Necessity Reason Pt with a Central, PICC or Fol: No Subjective Patient reports: No new complaints Review of Systems: HEENT:Normal, CVS:Normal, RESPIRATORY:Normal, GI:Normal, :Normal, MSK:Normal, NEURO:Normal Objective vital signs Vital Sign Date Time Temp Pulse Resp B/P (MAP) Pulse Ox O2 Delivery O2 Flow Rate FiO2 03/16/25 09:18 97.6 56 18 126/69 (88) 96 97.6 03/16/25 09:10 Room Air* 0 21 Total Intake and Output 03/15/25 03/15/25 03/16/25 15:00 23:00 07:00 Intake Total 100 ml Balance 100 ml medications Current Medications Medications Dose Ordered Sig/Cyndi Route Start Time Stop Time Status Last Admin Dose Admin Sodium Chloride 1,000 ml @ 100 mls/hr Q10H IV 03/16/25 07:45 03/16/25 09:21 100 MLS/HR Acetaminophen/ Hydrocodone Bitart 1 tab Q4HP PRN PO 03/16/25 07:45 Ondansetron HCl 4 mg Q4HP PRN IV 03/16/25 07:45 Docusate Sodium 100 mg BIDPRN PRN PO 03/16/25 07:45 Acetaminophen 650 mg Q6HP PRN PO 03/16/25 07:45 Morphine Sulfate 2 mg Q4HPRN PRN IV 03/16/25 07:45 Metoclopramide HCl 10 mg Q8HPRN PRN IV 03/16/25 07:45 Metronidazole 100 ml @ 100 mls/hr Q8HR IV 03/16/25 14:00 Ceftriaxone Sodium 50 ml @ 100 mls/hr DAILY@09 IV 03/16/25 09:00 03/16/25 09:21 100 MLS/HR Pantoprazole Sodium 40 mg DAILY IV 03/16/25 10:00 03/16/25 10:25 40 MG Patient Own Medication 1 tab DAILY PO 03/16/25 10:00 Examination: GENERAL:Normal, HEENT:Normal, NECK:Normal, LUNGS:Normal, CVS:Normal, ABDOMEN:Normal, MSK:Normal, SKIN:Normal, NEURO:Normal, :Normal laboratory and microbiology Laboratory Tests 03/16/25 00:26 Test 03/16/25 00:26 Range/Units Serum Glucose 77 74-106 mg/dL Problem List/Assessment/Plan Problem List/Assessment/Plan #1 abd pain ?acute eloise: iv antibiocs, ivf, ? percut eloise #2 morbid obesity #3 s/p gastric bypass #4 uti #5 ADHD Plan discussed with: Patient Date of Service: Mar 16, 2025 Billing Provider: NATALIA CAROLINA MD Common Visit Codes: [id number] INP/OBS CARE(HIGH) NATALIA CAROLNIA MD Mar 16, 2025 13:05
--- NOTE | 2025-03-17 12:16 | DVHDS ---
DATE OF DISCHARGE: 03/16/2025 HISTORY OF PRESENT ILLNESS: The patient is a 29-year-old lady who is admitted with complaints of abdominal pain and has a history of morbid obesity status post recent gastric bypass surgery, asthma, and ADHD. HOSPITAL COURSE: The patient had a CT of abdomen and pelvis that showed evidence of splenomegaly with moderate gallbladder wall thickening and pericholecystic edema. The patient had a gallbladder ultrasound that showed gallbladder wall thickening with pericholecystic fluid. She was seen in surgery consult by and a HIDA scan was recommended. White count was elevated. The patient left against medical advice on 03/16/2025. FINAL DIAGNOSES: * Abdominal pain with questionable acute cholecystitis. * Morbid obesity. * UTI. * History of gastric bypass surgery. * ADHD. MD CARLOS Diaz/RENETTA/DILLON TID: [id number] RECEIPT: [id number]
== END 2025-03-16 17:33 | disposition left against medical advice (07) ==
LOC: ER 00:14 → OVERFLOW 07:34
PROVIDERS: ADMIT Internal Medicine; ATTEND Internal Medicine
DX: K81.0 Acute cholecystitis (principal); Z68.43 Body mass index [BMI] 50.0-59.9, adult; E66.01 Morbid (severe) obesity due to excess calories; E87.6 Hypokalemia; Z53.29 Procedure and treatment not carried out because of patient's decision for other reasons; N39.0 Urinary tract infection, site not specified; F90.9 Attention-deficit hyperactivity disorder, unspecified type; J45.909 Unspecified asthma, uncomplicated; Z98.84 Bariatric surgery status; Z80.3 Family history of malignant neoplasm of breast; Z79.899 Other long term (current) drug therapy
CPT/HCPCS: 36415; 71045; 74177; 76705; 80053; 81001; 81025; 83690; 84702; 85025; 85610; 85730; 96365; 96366; 96367; 96375; G0378; J1885; J2003; J2405; J2470; J2543; J3490

== ENCOUNTER 2025-06-26 09:03 | Outpatient (CLI) | payer MEDICAID ==
[~2025-06-26 09:03] MED LIST: METH27TA PO; OMEP-448 PO
[2025-06-26 09:58] LABS: Hematocrit 41.2 % (36.0-46.0); Hemoglobin 13.9 g/dL (12.2-16.2); Mean Corpuscular Hemoglobin 28.1 pg (28.0-32.0); Mean Corpuscular Volume 83.1 fL (80.0-100.0); Nucleated Red Blood Cells % 0.0 %
[2025-06-26 10:41] LABS: Alanine Aminotransferase 15 U/L (7-40); Albumin 4.2 g/dL (3.2-4.8); Alkaline Phosphatase 75 U/L (46-116); Anion Gap 10 (5-15); BUN/Creatinine Ratio 15.4 (10.0-20.0); Blood Urea Nitrogen 12 mg/dL (9-23); Calcium 9.3 mg/dL (8.7-10.4); Carbon Dioxide 28 mmol/L (20-31); Chloride 103 mmol/L (98-107); Cholesterol 132 mg/dL (< 200); Glucose 86 mg/dL (74-106); Potassium 3.9 mmol/L (3.5-5.1); Sodium 141 mmol/L (136-145); Total Protein 7.4 g/dL (5.7-8.2); Triglycerides 79 mg/dL (< 150)
[2025-06-26 10:42] LABS: Bilirubin, Total 0.6 mg/dL (0.2-1.0); HDL Cholesterol 36 mg/dL (40-59)
[2025-06-28 05:07] LABS: Chlamydia Trachomatis, NAA Negative (Negative); Neisseria gonorrhoeae, NAA Negative (Negative)
== END 2025-06-26 17:00 | disposition home or self-care (01) ==
LOC: LAB 09:03
PROVIDERS: ATTEND Nurse Practitioner Family
DX: I10 Essential (primary) hypertension (principal); E66.9 Obesity, unspecified; Z00.01 Encounter for general adult medical examination with abnormal findings; Z20.2 Contact with and (suspected) exposure to infections with a predominantly sexual mode of transmission
CPT/HCPCS: 36415; 80053; 80061; 81025; 82043; 82306; 83036; 84443; 85025; 86695; 86696; 86703; 86780